=== PATIENT | female | born 1965 | race Caucasian/White ===

== ENCOUNTER → 2017-08-26 | Outpatient (CLI) | payer OTHER ==
[~2017-08-26] MED LIST: ALBU8.5H12 IH; ALLERGY SHOTS; BECL8.7A2 IH; CETI10CA8 PO; CLARITAN; CYCL-332 PO; DOC100 PO; DOCU-416 PO; IBU800 PO; LACTAID9000 UNIT PO; LEVO750T25 PO; LOR5 PO; LOR5/325 PO; MON10 PO; NIT100 PO; NO ROUTINE MEDS; ONDA4TAB PO; PENT100C10 PO; PER PO; PHENA200 PO; PRED20TA6 PO; TOLT4CAP13 PO
--- NOTE | 2017-08-26 14:40 | RADIOLOGY IMAGING REPORT ---
FACILITY: [facility] PATIENT NAME: Elizabeth Ferrer : 1965 MR: [id number] V: [id number] EXAM DATE: ORDERING PHYSICIAN: SURENDRA GREEN TECHNOLOGIST: Location: [facility] Patient: Elizabeth Ferrer : 1965 Visit/Account:[id number] Date of Sevice: 08/26/2017 THYROID HISTORY: Small enlarged thyroid COMPARISON: None. FINDINGS: SIZE: Normal. Right lobe: 4.1 x 1.4 x 1.5 cm Left lobe: 4.2 x 1.5 x 1.3 cm Isthmus: 3 mm PARENCHYMA: Homogeneous. NODULES: Right lobe: * None discrete. Left lobe: * None discrete. Isthmus: * None discrete. VASCULARITY: Within normal limits. ADDITIONAL FINDINGS: None. IMPRESSION: Unremarkable thyroid ultrasound REFERENCE: 2015 [employer] Management Guidelines for Adult Patients with Thyroid Nodules and D ifferentiated Thyroid Cancer: The [place] [employer] Guidelines Task Force on Thyroid Nodul es and Differentiated Thyroid Cancer. SONOGRAPHIC PATTERNS: * Benign: Purely cystic nodules (no solid component); estimated risk of malignancy <1 percent; no bi opsy recommended. * Very Low Suspicion: Spongiform or partially cystic nodules without any of the sonographic features described in low, intermediate, or high suspicion patterns; estimated risk of malignancy <3 percent; consider FNA at > 2 cm (Observation without FNA is also a reasonable option). * Low Suspicion: Isoechoic or hyperechoic solid nodule, or partially cystic nodule with eccentric so lid areas, without microcalcification, irregular margin or ETE (extra-thyroidal extension), or taller than wide shape; estimated risk of malignancy 5-10 percent; recommend FNA at >1.5 cm. * Intermediate Suspicion: Hypoechoic solid nodule with smooth margins without microcalcifications, E TE (extra-thyroidal extension), or taller than wide shape; estimated risk of malignancy 10-20 percent ; recommend FNA at > 1 cm. * High Suspicion: Solid hypoechoic nodule or solid hypoechoic component of a partially cystic nodule with one or more of the following features: irregular margins (infiltrative, microlobulated), microc alcifications, taller than wide shape, rim calcifications with small extrusive soft tissue component, evidence of ETE (extra-thyroidal extension); estimated risk of malignancy >70-90 percent; recommend FNA at > 1 cm. NOTES: * Although a sonographically suspicious subcentimeter thyroid nodule without evidence of extrathyroi lyndsey extension or sonographically suspicious lymph nodes may be observed with close sonographic follow -up rather than pursuing immediate FNA, patient age and preference may modify decision-making. A > 50% interval increase in nodule volume and/or development of new suspicious sonographic features are felt to be a valid reasons for potential re-aspiration of a nodule previously shown to have benig n FNA cytology. Report Dictated By: Rachel Washington MD at 08/26/2017 2:34 PM Report E-Signed By: Rachel Washington MD at 08/26/2017 2:35 PM WSN:PER
== END ==
LOC: US 01:53
PROVIDERS: ATTEND Physician Assistant Surgical
DX: R22.1 Localized swelling, mass and lump, neck (principal)
CPT/HCPCS: 76536

== ENCOUNTER 2018-09-17 01:16 | Day surgery (SDC) | payer OTHER ==
[~2018-09-17] VITALS: Ht 182.2 cm; Wt 113.9 kg
[~2018-09-17 01:16] MED LIST changes: +BIRTH CONTROL PO; +CALC1TAB26 PO; +DULERAPT INH; +IBUP600T22 PO; +PSEU120T69 PO; +SACC250C PO; +VITA1CAP46 PO
[2018-09-17] MEDS ORDERED: NORMOSOL R SOLN(*) 1000 ML BAG 1,000 ML IV PRN (07:20)
[2018-09-17] MEDS ORDERED: LIDOCAINE/SOD BICARB 8.4% SYR ID ONE (07:20)
[2018-09-17 07:26] VITALS: BP 129/103
[2018-09-17 07:28] VITALS: BP 141/56
[2018-09-17] MEDS ORDERED: PROPOFOL EMUL(*) 10MG/ML 20 ML 40 ML ONE (07:44)
[2018-09-17] MEDS ORDERED: LIDOCAINE MPF 1% 5 ML VIAL ONE (07:44)
[2018-09-17] MEDS ORDERED: ONDANSETRON 4 MG/2 ML VIAL ONE (08:09)
[2018-09-17] MEDS ORDERED: PROPOFOL EMUL(*) 10MG/ML 20 ML 20 ML ONE (08:23)
[2018-09-17 08:28] VITALS: BP 99/56
--- NOTE | 2018-09-17 08:38 | NUR ---
0828-PT ARRIVES TO [place] FROM OR ON CART IN L-LAT POSITION. VSS SBAR REPORT FROM Michelle JOSUE RN AND DR DENVER POP. VSS PT WAKES AT THIS TIME AND IS RE ORIENTED AT THIS TIME. 0832-PT TRAILED ON ROOM AIR AT THIS TIME. 0842-PT GIVEN WATER AND APPLE JUICE AT THIS TIME.
[2018-09-17 08:44] VITALS: BP 111/63
[2018-09-17 09:01] VITALS: BP 122/81
[2018-09-17 09:08] VITALS: BP_SYST 139; BP_SYST 145; BP_DIAS 47; BP_DIAS 68
== END 2018-09-17 09:21 | disposition home or self-care (01) ==
LOC: OR 01:16
PROVIDERS: ATTEND Family Medicine
DX: Z12.11 Encounter for screening for malignant neoplasm of colon (principal); Z83.71 Family history of colonic polyps
CPT/HCPCS: 00812; 45378; J2001; J2405; J2704

== ENCOUNTER → 2018-12-23 | Outpatient (CLI) | payer OTHER ==
--- NOTE | 2018-12-23 11:37 | RADIOLOGY IMAGING REPORT ---
FACILITY: [facility] [place] PATIENT NAME: Elizabeth Ferrer : 1965 MR: [id number] V: [id number] EXAM DATE: ORDERING PHYSICIAN: LAY JURADO TECHNOLOGIST: Location: [facility] [place] Patient: Elizabeth Ferrer : 1965 Visit/Account:[id number] Date of Sevice: 12/23/2018 Exam type: CHEST PA LAT History: Bronchitis Comparison: None. Findings: Both lungs are well-expanded and clear. There is no focal infiltrate, pleural effusion or pneumothor ax. Heart size is normal. The osseous structures are unremarkable. IMPRESSION: 1. No acute cardiopulmonary disease. Report Dictated By: Jermaine Herron MD at 12/23/2018 11:30 AM Report E-Signed By: Jermaine Herron MD at 12/23/2018 11:31 AM WSN:[id number]
== END ==
LOC: RAD 11:03
PROVIDERS: ATTEND Physician Assistant
DX: J20.9 Acute bronchitis, unspecified (principal)
CPT/HCPCS: 71046